=== PATIENT | male | born 1965 | race Caucasian/White ===

== ENCOUNTER 2016-11-13 14:49 | Inpatient (IN) | payer OTHER ==
[~2016-11-13] VITALS: Ht 172.7 cm; Wt 135.2 kg
[2016-11-13 15:10] VITALS: BP 157/90
--- NOTE | 2016-11-13 15:15 | NUR ---
PATIENT TO BED #3 AMBULATED
--- NOTE | 2016-11-13 15:20 | NUR ---
PATIENT PRESENTS TO ED WITH C/O THROAT PAIN, FEELS LIKE THROAT CLOSING UP/SWELLING SINCE LAST NIGHT.FACIAL SWELLING AND BODY ITCH. DENIES SOB. DENIES EATING NEW FOOD.COUGHING WITH PLEGHM . DENIES N/V/D; SKIN IS PINK/WARM/DRY; AAOX4 WITH EVEN AND STEADY GAIT; LUNGS CLEAR BL; HR EVEN AND REGULAR; PT DENIES ANY FEVER, CP, SOB, OR COUGH AT THIS TIME; PATIENT STATES PAIN OF 3/10 AT THIS TIME; VSS; PATIENT POSITIONED FOR COMFORT; HOB ELEVATED; BEDRAILS UP X2; BED DOWN. ER MD MADE AWARE OF PT STATUS.
--- NOTE | 2016-11-13 15:30 | NUR ---
Dr. Buckley evaluating patient at bedside.
--- NOTE | 2016-11-13 15:33 | NUR ---
Note edgar in EDM - 11/13/16 at 1536 by FANY Patient discharged with v/s stable. Written and verbal after care instructions given and explained. Patient alert, oriented and verbalized understanding of instructions. Ambulatory with steady gait. All questions addressed prior to discharge. ID band removed. Patient advised to follow up with PMD. Rx of GARAMYCIN given. Patient educated on indication of medication including possible reaction and side effects. Opportunity to ask questions provided and answered.
--- NOTE | 2016-11-13 15:34 | NUR ---
PT TAKEN OFF THE UNIT VIA WHEEL CHAIR BY RADHA QUINTERO FOR XRAY ON THE NECK
[2016-11-13] MEDS ORDERED: methylPREDNISolone SS 125 MG/2 ML VIAL IVP ONE ×2 (15:35→17:15)
[2016-11-13] MEDS ORDERED: NACL 0.9% 1,000 ML IV ONE (15:35)
[2016-11-13] MEDS ORDERED: diphenhydrAMINE 50 MG/ML VIAL IVP ONE (15:35)
--- NOTE | 2016-11-13 15:44 | NUR ---
Patient back from XRAY via wheelchair per tech.
--- NOTE | 2016-11-13 15:59 | NUR ---
Patient taken to CT via wheelchair per tech.
--- NOTE | 2016-11-13 16:00 | NUR ---
PT TAKEN TO XRAY VIA WHEEL CHAIR BY RADHA SÁNCHEZ
[2016-11-13] MEDS ORDERED: PIPERACILLIN/TAZOBACTAM 3.375 GM in DEXTROSE 5% 50 ML IV ONE (16:05)
[2016-11-13] MEDS ORDERED: ETOMIDATE 20 MG/10 ML VIAL IVP ONE ×3 (16:05→17:15)
--- NOTE | 2016-11-13 16:07 | NUR ---
Patient back from CT via wheelchair per tech.
[2016-11-13 16:11] LABS: BASOPHILS # (AUTO) 0.1 K/uL (0.00-0.22); BASOPHILS % (AUTO) 1.7 % (0.0-2.0); EOSINOPHILS # (AUTO) 0.1 K/uL (0-0.4); EOSINOPHILS % (AUTO) 1.7 % (0.0-4.0); HEMOGLOBIN 14.6 g/dL (12.0-18.0); LYMPHOCYTES # (AUTO) 1.6 K/uL (2.0-11.5); MEAN CORPUSCULAR HEMOGLOBIN 31 pg (27-31); MEAN CORPUSCULAR HGB CONC 33 g/dL (33-37); MEAN CORPUSCULAR VOLUME 92 fL (80-94); MONOCYTES # (AUTO) 0.5 K/uL (0.8-1.0); MONOCYTES % (AUTO) 6.5 % (1.7-9.3); NEUTROPHILS # (AUTO) 5.5 K/uL (1.8-7.7); NEUTROPHILS % (AUTO) 69.1 % (42.2-75.2); PLATELET COUNT (AUTO) 177 K/uL (140-450); RED BLOOD CELL COUNT(AUTO) 4.79 MIL/uL (4.20-6.10); RED CELL DISTRIBUTION WIDTH 13.2 % (11.6-13.7); WHITE BLOOD COUNT (AUTO) 7.8 K/uL (4.8-10.8)
--- NOTE | 2016-11-13 16:14 | NUR ---
Dr. Buckley and RT at bedside for intubation procedure.
--- NOTE | 2016-11-13 16:15 | NUR ---
1615 - 20MG ATOMIDATE GIVEN VIA IV LEFT AC 20G, BP 179/85, HR 72 RR 18, SPO2 99% VIA AMBU BAG 1620 - 100 MG SUCCINYLCHOLINE GIVEN VIA IV LEFT AC 20G BP 179/85, HR 87, RR 20 SPO2 99% VIA AMBU BAG, INTUBATION ATTEMPTED BY DR CR 1623- HR 94, RR 22 SPO2 99% 1624 - 100 MG SUCCINYLECHOLINE GIVEN VIA IV LEFT AC 20G 1625 - BP 219/116, INTUBATION ATTEMPTED BY DR CR VIA GLIDE SCOPE 1628 - REG INTUBATION ATTEMPTED BY DR CR, BP 221/94, HR 102 RR 20 SPO2 99% 1630 - REG INTUBATION ATTEMPTED BY DR CR, BP 194/64, HR 120/ RR 18 SPO2 96 VIA AMBU BAG 1631 - MANUAL VENTILATION CONTINUED BY DIRECTOR OF GUIDANCELeeann WILKS, WITH DIRECTOR OF GUIDANCELeeann QUINTERO ASSISTANCE BP 125/64, HR 102, RR 28, SPO2 99% VIA MANUAL VENTILATION 1635 - 100 MG SUCCINYLCHOLINE, HR 98 1639 - BP 124/94, HR 81, RR 36 MANUALLY VENTILATED CRICHOTOMY PREPARED 164 - BP 213/176, HR 70, RR 36, SPO2 92 VIA AMBU BAG 1642 20MG ATOMIDATE IV GIVEN IV VIA LEFT AC 20G, CRICOTHOMY STARTED BY DR CR
[2016-11-13 16:23] LABS: ANION GAP 14.1 (8-16); CARBON DIOXIDE 25.1 mmol/L (21-32); CREATININE 0.9 mg/dL (0.7-1.3); POTASSIUM 4.2 mmol/L (3.5-5.1)
[2016-11-13 16:30] LABS: ALBUMIN 3.9 g/dL (3.4-5.0); TOTAL BILIRUBIN 0.6 mg/dL (0.0-1.0)
--- NOTE | 2016-11-13 16:34 | NUR ---
XRAY at bedside for STAT xray.
--- NOTE | 2016-11-13 16:43 | NUR ---
1643 - CRICOTHOMY CONTINUED BY DR CR, BP 176/103 HR, 109 RR 29, SPO2 94% 1647 - BP 170/131, HR 115, RR 14, SPO2 99% VIA AMBUA BAG 1650 - DR CR ATTEMPTED TO ADVANCE 6.0 ET TUBE THROUGH THE CRICOTOMY, HR 115, RR 16, SPO2 98% 165- DR CR ATTEMPTED REGULAR INTUBATION 165 - DR GARZON ATTEMPTED REGULAR INTUBATION BP 183/107, HR 124 SPO2 89% VIA AMBU BAG 1658 - 20 MG ATOMIDATE GIVEN VIA IV LEFT AC 20G BP 190/106, HR 113, SPO2 98% VIA AMBU BAG 1702 - GIVEN 1 GM CALCIUM IV LEFT AC 20G, HR 116, SPO2 95% 170 - DR CR ATTEMPTED GLIDE INTUBATION, HR 108, RR 16, SPO2 99% VIA AMBU BAG 1711 - BP OFF DUE TO IV STARTED ON RIGHT ARM, HR 99, RR 22, SPO2 99% VIA BVM 1720 - DR CR DISCONTINUE FURTHER INTUBATION ATTEMPT, ORDERED BIPAP, HR 103, SPO2 97% VIA BVM 1725 - PACKAGE LIFT OPERATOR PLACED PT ON BIPAP PER DR CR'S ORDER
[2016-11-13 16:48] LABS: PROTHROMBIN TIME 9.8 secs (10.8-13.4)
[2016-11-13] MEDS ORDERED: MIDAZOLAM 2 MG/2 ML VIAL ONE (16:48)
--- NOTE | 2016-11-13 17:02 | NUR ---
Team (Dr. Buckley, RT, RN's, techs) still at bedside for intubation procedure.
[2016-11-13] MEDS ORDERED: PIPERACILLIN/TAZOBACTAM 3.375 GM VIAL IV ONE (17:13)
[2016-11-13] MEDS ORDERED: SUCCINYLCHOLINE CHLORIDE 200 MG/10 ML VIAL IVP ONE ×2 (17:15)
[2016-11-13 17:30] LABS: HEMATOCRIT 42.7 % (36-52); HEMOGLOBIN 14.5 g/dL (12.0-18.0); MEAN CORPUSCULAR HEMOGLOBIN 31 pg (27-31); MEAN CORPUSCULAR HGB CONC 34 g/dL (33-37); MEAN CORPUSCULAR VOLUME 92 fL (80-94); PLATELET COUNT (AUTO) 175 K/uL (140-450); RED BLOOD CELL COUNT(AUTO) 4.67 MIL/uL (4.20-6.10); RED CELL DISTRIBUTION WIDTH 13.6 % (11.6-13.7); WHITE BLOOD COUNT (AUTO) 14.7 K/uL (4.8-10.8)
[2016-11-13 17:37] LABS: ANION GAP 15.5 (8-16); CARBON DIOXIDE 22.2 mmol/L (21-32); POTASSIUM 3.7 mmol/L (3.5-5.1)
[2016-11-13 17:43] LABS: ALBUMIN 3.7 g/dL (3.4-5.0); TOTAL BILIRUBIN 0.7 mg/dL (0.0-1.0)
[2016-11-13 17:51] LABS: LYMPHOCYTES % (MANUAL) 16 % (20-46)
--- NOTE | 2016-11-13 17:51 | NUR ---
RESPONDED TO ER TO ASSIST DR. IN DIFFICULT INTUBATION. INTUBATION WAS UNSUCCESSFUL AND PATIENT WAS PLACED ON BIPAP PER DR ORDERS. RT WAS AT BEDSIDE AND ASSISSTED IN BAGGING (AMBU-BAG) PATIENT. PATIENT STABLE AT THIS TIME ON BIPAP.
[2016-11-13 17:52] LABS: EOSINOPHILS % (MANUAL) 1 % (0-4); MONOCYTES % (MANUAL) 5 % (5-12)
[2016-11-13 17:58] VITALS: BP 118/80
[2016-11-13] MEDS ORDERED: hydrALAZINE 20 MG/ML VIAL IVP ONE (18:00)
[2016-11-13] MEDS ORDERED: CALCIUM CHLORIDE 10% 100 MG/ML SYR IVP ONE (18:10)
[2016-11-13] MEDS ORDERED: methylPREDNISolone SS 125 MG/2 ML VIAL ONE (18:44)
[2016-11-13 18:59] VITALS: BP 132/72
--- NOTE | 2016-11-13 19:30 | NUR ---
Care of pt transferred to the care of ICU nurse. Report given to ICU nurse per EVELYN Stephenson. Pt will remain in ER bed until ICU able to absorb pt. See ICU documentation.
[2016-11-13 20:00] VITALS: BP 123/56
--- NOTE | 2016-11-13 20:00 | NUR ---
RECEIVED REPORT FROM ER NURSE. PT IS A/O X4. ABLE TO NOD/SHAKE HEAD TO QUESTIONS. DIFFICULTY SPEAKING NOTED D/T PREVIOUS PROCEDURE. ABLE TO COMMUNICATE SIMPLE NEEDS. NO C/O PAIN OR DISCOMFORT. NO C/O SOB. BILATERAL PERRLA NOTED. SPOKE TO DR. BUENROSTRO REGARDING PT IN ER. AWARE. PT PLACED ON BIPAP. TOLERATING WELL. SATURATING AT 99%. FREQUENT SUCTIONING PROVIDED PER PT REQUEST. SUCTION BLOODY PHLEGM. AWARE. SR ON MONITOR. SKIN IS NON INTACT. NOTED SMALL ROUND SCABS ON LEFT ARM. OPEN AREA IN NECK NOTED D/T ER PROCEDURE. DRESSING IN PLACE. PT ABLE TO MOVE ALL EXTREMITIES. SAFETY PRECAUTION MAINTAINED. BED AT LOWEST SETTINGS. NURSE AT BEDSIDE FOR MONITORING. WILL CONTINUE TO MONITOR.
[2016-11-13] MEDS ORDERED: MORPHINE SULFATE 4 MG/ML SYR IVP PRN (20:45)
[2016-11-13] MEDS ORDERED: ALBUTEROL SULFATE/IPRATROPIU 3 ML SOL IH PRN (20:45)
[2016-11-13] MEDS ORDERED: RACEPINEPHRINE 2.25% 13.5 MG/0.5 ML NEBU INH PRN (20:45)
[2016-11-13] MEDS ORDERED: ONDANSETRON 4 MG/2 ML VIAL IVP PRN (20:45)
[2016-11-13] MEDS ORDERED: HYDROcodone/APAP 5/325 MG 1 TAB TAB PO PRN (20:45)
[2016-11-13] MEDS ORDERED: LORazepam 2 MG/ML VIAL IVP PRN (20:45)
--- NOTE | 2016-11-13 21:00 | NUR ---
PROVIDE FREQUENT SUCTION. CONTINUES TO SUCTION BLOODY PHLEGM. TOLERATED WELL. PT ALERT AND ORIENTED X4. NO C/O PAIN OR DISCOMFORT. NO C/O SOB. ABLE TO ANSWER ALL QUESTIONS. WILL CONTINUE TO MONITOR.
[2016-11-13 21:09] VITALS: BP 140/73
[2016-11-13] MEDS: DEXT 5% /NACL 0.9% 1,000 ML IV SCH (21:20)
--- NOTE | 2016-11-13 22:00 | NUR ---
PROVIDE FREQUENT SUCTION. CONTINUES TO SUCTION BLOODY PHLEGM. TOLERATED WELL. DRESSING CHANGE ON NECK WOUND CHANGE D/T SOILAGE. TOLERATED WELL. PT SLEEPING. AWAKE TO NAME. ALERT AND ORIENTED X4 ONCE AWAKEN. NO C/O PAIN OR DISCOMFORT. NO C/O SOB. WILL CONTINUE TO MONITOR.
[2016-11-13 22:01] VITALS: BP 139/70
--- NOTE | 2016-11-13 23:00 | NUR ---
PROVIDE FREQUENT SUCTION. CONTINUES TO SUCTION BLOODY PHLEGM. TOLERATED WELL. PT SLEEPING. AWAKE TO URINATE. ASSIST TO EDGE OF BED TO USE URINAL. ASSIST WITH URINAL. URINE IS CLEAR, YELLOW.
[2016-11-13] MEDS ORDERED: AMPICILLIN/SULBACTAM 3 GM VIAL ONE ×4 (23:24→23:26)
[2016-11-14] VITALS (11 sets, daily range): BP systolic 132–161; BP diastolic 68–94
--- NOTE | 2016-11-14 | NUR ---
PROVIDE FREQUENT SUCTION. CONTINUES TO SUCTION BLOODY PHLEGM. TOLERATED WELL. PT SLEEPING. AWAKE TO NAME. A/O X4 ONCE AWAKEN. NO C/O PAIN OR DISCOMFORT. NO C/O SOB. WILL CONTINUE TO MONITOR.
[2016-11-14] MEDS: AMPICILLIN/SULBACTAM 3 GM in NACL 0.9% 100 ML IV SCH ×4 (00:02→17:04)
[2016-11-14] MEDS: DEXAMETHASONE 4 MG/ML VIAL IVP SCH ×5 (00:02→23:12)
--- NOTE | 2016-11-14 00:10 | NUR ---
MEDICATION ADMINISTERED ORDERED. IV IS INTACT AND PATENT. TOLERATED WELL. WILL CONTINUE TO MONITOR.
--- NOTE | 2016-11-14 01:00 | NUR ---
PROVIDE FREQUENT SUCTION. CONTINUES TO SUCTION BLOODY PHLEGM. TOLERATED WELL. PT A/O X4. NO C/O PAIN OR DISCOMFORT. NO C/O SOB. WILL CONTINUE TO MONITOR.
[2016-11-14] MEDS: ALBUTEROL SULFATE/IPRATROPIU 3 ML SOL IH SCH ×4 (01:15→18:56)
--- NOTE | 2016-11-14 02:00 | NUR ---
PROVIDE FREQUENT SUCTION. CONTINUES TO SUCTION BLOODY PHLEGM. TOLERATED WELL. PT A/O X4. NO C/O PAIN OR DISCOMFORT. NO C/O SOB. WILL CONTINUE TO MONITOR.
--- NOTE | 2016-11-14 02:45 | NUR ---
Pt transferred to ICU 3 with DINING CAR HOP, COTTON TIER, and RT. Rubén without incident.
--- NOTE | 2016-11-14 03:00 | NUR ---
TRANSPORT PT WITH 3 RNS AND RT VIA GURNEY TO ICU. PT TOLERATED TRANSPORT WELL. SUCTION PROVIDED. CONTINUES TO SUCTION BLOODY PHLEGM. TOLERATED WELL. PT A/O X4. NO C/O PAIN OR DISCOMFORT. NO C/O SOB. WILL CONTINUE TO MONITOR.
--- NOTE | 2016-11-14 04:00 | NUR ---
PROVIDE FREQUENT SUCTION. CONTINUES TO SUCTION BLOODY PHLEGM. TOLERATED WELL. PT SLEEPING. AWAKE TO URINATE. ASSIST TO EDGE OF BED TO USE URINAL. ASSIST WITH URINAL. URINE IS CLEAR, YELLOW. PT NOTED TO HAVE SLIGHT RAISED AREA WITH REDNESS ON RIGHT UPPER CHEST WELL REDNESS ON CHEST, UNDER BILATERAL ARMPIT, AND UPPER BACK. PER PT. REDNESS AND RAISED AREA HAVE BEEN THERE PRIOR TO ADMISSION. NOTIFIED MD. WILL CONTINUE TO MONITOR.
[2016-11-14] MEDS: diphenhydrAMINE 50 MG/ML VIAL IVP PRN ×2 (04:16→15:27)
--- NOTE | 2016-11-14 04:19 | NUR ---
BENADRYL IV PUSH GIVEN PER MD INSTRUCTION. TOLERATED WELL. WILL CONTINUE TO MONITOR FOR S/SX.
--- NOTE | 2016-11-14 05:00 | NUR ---
PROVIDE FREQUENT SUCTION. CONTINUES TO SUCTION BLOODY PHLEGM. TOLERATED WELL. PT A/O X4. NO C/O PAIN OR DISCOMFORT. NO C/O SOB. REDNESS AND RAISED AREA APPEARS TO BE DISSIPATING. WILL CONTINUE TO MONITOR.
[2016-11-14 05:59] LABS: HEMATOCRIT 39.7 % (36-52); HEMOGLOBIN 13.5 g/dL (12.0-18.0); MEAN CORPUSCULAR HEMOGLOBIN 32 pg (27-31); MEAN CORPUSCULAR HGB CONC 34 g/dL (33-37); MEAN CORPUSCULAR VOLUME 92 fL (80-94); PLATELET COUNT (AUTO) 139 K/uL (140-450); RED CELL DISTRIBUTION WIDTH 13.4 % (11.6-13.7); WHITE BLOOD COUNT (AUTO) 12.8 K/uL (4.8-10.8)
--- NOTE | 2016-11-14 06:00 | NUR ---
ENDORSED PT TO EVELYN SUAREZ. PT IS STABLE.
[2016-11-14 06:10] LABS: ANION GAP 17.2 (8-16); CARBON DIOXIDE 20.9 mmol/L (21-32); POTASSIUM 4.1 mmol/L (3.5-5.1)
--- NOTE | 2016-11-14 06:10 | NUR ---
RECEIVED REPORT FROM JOSE RIVASDIRECTOR UTILIZATION MANAGEMENTSTRIP MACHINE TENDER,WHICH SHE STATES THAT PATIENT'S CONDITION IS STABLE ALL NIGHT AND HAS NO SIGN OF RESPIRATORY DISTRESS. PATIENT IS SLEEPING AT THIS TIME BUT EASILY AWAKEN TO VOICE. PATIENT IS ALERT WHILE AWAKE AND ANSWERS THE QUESTIONS WITH CLEAR SPEECH. PATIENT IS ORIENTED X 4 AND STATES THAT HE FEELS LITTLE BETTER TODAY. DENIES PAIN. PATIENT IS ON BIPAP 10/5,RATE 12,FIO2=28%. O2 SAT 97%. LUNG SOUNDS CLEAR. NO SIGH OF DISTRESS. SINUS RHYTHM ON MONITOR. ABDOMEN IS SOFT. NONTENDER. DENIES NAUSEA. PATIENT ABLE TO MOVE ALL EXTREMITIES. SKIN IS WARM AND DRY. NO REDNESS ON THE UPPER CHEST NOTED AT THIS TIME. PATIENT STATES THAT HE HAS LEFT NECK LYMPH NODE SWOLLEN. NO REDNESS ON LEFT NECK NOTED,BUT LEFT NECK IS LITTLE BIGGER THAN THE RIGHT NECK. PATIENT COUGHS UP WITH SMALL PALE BROWN THICK MUCUS. ORAL SUCTIONED. PATIENT HAS IV OF D5/0.9 NS @ 100 ML/HR. REPOSITIONED TO LT SIDE. CONTINUE TO MONITOR THE PATIENT.
[2016-11-14 06:14] LABS: MAGNESIUM 1.7 mg/dL (1.8-2.4); PHOSPHORUS 2.8 mg/dL (2.5-4.9)
--- NOTE | 2016-11-14 06:32 | NUR ---
REC'D PT ON REYNA BIPAP SETTINGS / RR 12 FIO2 28% ALARMS ON AND FUNCTIONING PROPERLY AMBU BAG AT SIDE OF BIPAP AND BIPAP IS PLUGGED INTO RED OUTLET, I\L TX GIVEN WITH DUONEB 3ML WITH NO ADVERSE REACTION POST TX, B\S ARE CLEAR, WEARING LARGE FACE MASK AND SKIN INTEGRITY IS INTACT
[2016-11-14] MEDS: DEXT 5% /NACL 0.9% 1,000 ML IV SCH ×2 (06:45→10:22)
--- NOTE | 2016-11-14 07:00 | NUR ---
PATIENT 'S CONDITION IS UNCHANGED. REPORT GIVEN TO ADAMA RIVAS FOR CONTINUITY OF CARE.
[2016-11-14 07:04] LABS: LYMPHOCYTES % (MANUAL) 15 % (20-46); MONOCYTES % (MANUAL) 3 % (5-12)
--- NOTE | 2016-11-14 07:05 | NUR ---
PT OFF BIPAP PLACED ON 28% COOL MIST EVELYN GALAN AND EVELYN SUAREZ NOTIFIED OF CHANGES MADE
--- NOTE | 2016-11-14 07:15 | NUR ---
RECEIVED REPORT FROM EVELYN SUAREZ. NO SIGNS OF ACUTE DISTRESS AT THIS TIME. NO C/O PAIN. PT IS ON COOL MIST AEROSIL, FIO2: 28%. IV TO LEFT AC #20 AND RIGHT HAND #20 PATENT AND INTACT. OLD SCABS NOTED TO UPPER BACK, STITCH X1 TO THROAT NOTED, REDNESS TO ABDOMEN. PT IS CURRENTLY SR ON THE MONITOR. SAFETY PRECAUTIONS IN PLACE WITH BED IN LOWEST POSITION AND SIDE RAILS UP. CALL LIGHT WITHIN REACH. WILL CONTINUE TO MONITOR.
--- NOTE | 2016-11-14 08:45 | NUR ---
PRESENT AT BEDSIDE ,EXAMINED THE PATIENT AND CHECKED ON THE PATIENT'S NECK. PER : KEEP PATIENT NPO UNTIL SWALLOW EVALUATION DONE.
--- NOTE | 2016-11-14 08:47 | NUR ---
DR. HILL IN TO SEE PT. MD AWARE OF LOW MAGNESIUM: 1.7. WILL FOLLOW UP ON ORDERS.
--- NOTE | 2016-11-14 08:55 | NUR ---
PER DR. HILL PLACE PT ON 3LNC RN ADAMA NOTIFIED
--- NOTE | 2016-11-14 08:59 | NUR ---
PATIENT HAS BEEN SCREENED AND CATEGORIZED HIGH NUTRITION RISK. PATIENT WILL BE SEEN WITHIN 1-2 DAYS OF ADMISSION. 11/14/16-11/15/[address]
[2016-11-14] MEDS ORDERED: MAG SULF 2000 MG/WATER PREMIX 50 ML IV SCH (09:30)
--- NOTE | 2016-11-14 10:30 | NUR ---
PT TOLERATED MEDS WELL
--- NOTE | 2016-11-14 10:42 | NUR ---
CALLED IN TO UPDATE IN PATIENT'S CONDITION , MADE AWARE OF PT HAS HIGH BP WITH SBP BETWEEN 145-154 IN THE PAST 4 HRS. PER : NO MEDICATION FOR HIGH BP AT THIS TIME. ORDER RECEIVED FOR TRANSFERRING PATIENT TO TELEMETRY.
--- NOTE | 2016-11-14 11:49 | NUR ---
DR. CORADO IN TO SEE PT. WILL FOLLOW UP ON ORDERS.
--- NOTE | 2016-11-14 12:06 | NUR ---
LAB CALLED IN FOR CRITICAL LAB : POSITIVE BLOOD CULTURE WITH GRAM POSITIVE COCCI IN CLUSTER. PAGED AND WAITING FOR MD TO CALL BACK.
--- NOTE | 2016-11-14 12:12 | NUR ---
PT TOLERATED MEDS WELL.
--- NOTE | 2016-11-14 12:14 | NUR ---
CALLED BACK AND WAS NOTIFIED OF PATIENT HAS POSITIVE BLOOD CULTURE GRAM POSITIVE COCCI IN CLUSTER. ORDERS TO GIVE VANCOMYCIN AND INF DISEASE CONSULT. ORDER IS CARRIED OUT. NURSE ADAMA WAS INFORMED.
[2016-11-14] MEDS ORDERED: VANCOMYCIN PER PHARMACY MC PRN (12:20)
[2016-11-14] MEDS ORDERED: VANCOMYCIN 1GM/DEXT 5% PREMIX 200 ML IV ONE (12:20)
[2016-11-14] MEDS: VANCOMYCIN HCL 1,500 MG in DEXTROSE 5% 250 ML IV SCH ×2 (13:45→20:53)
--- NOTE | 2016-11-14 13:46 | NUR ---
PT TOLERATED MEDS WELL. PT C/O ITCHINESS TO ABDOMINAL RASH. OFFERED BENADRYL, BUT PT REFUSED. WILL CONTINUE TO MONITOR.
--- NOTE | 2016-11-14 14:10 | NUR ---
URINE SPECIMEN COLLECTED AND SENT TO LAB. SPEECH THERAPIST PRESENT AT BEDSIDE.
--- NOTE | 2016-11-14 14:12 | NUR ---
PER SPEECH THERAPIST, "PT DECLINED SWALLOW EVAL AT THIS TIME HE IS HAVING DIFFICULTY SWALLOWING HIS OWN SALIVA." SPEECH THERAPIST STATED SHE WILL COME BACK TO ATTEMPT AN EVALUATION AT A LATER TIME.
--- NOTE | 2016-11-14 14:14 | NUR ---
VETERANS SERVICE OFFICER note (attempted bedside swallow evaluation) [phone]. VETERANS SERVICE OFFICER came to attempt bedside swallow evaluation; however, pt reported that he doesn't feel ready to attempt PO at this time as he is still not able to swallow his own saliva at this time. VETERANS SERVICE OFFICER provided pt with education regarding purpose of VETERANS SERVICE OFFICER's visit, supportive listening, and encouragement. Pt appreciative of VETERANS SERVICE OFFICER's visit, but unwilling to participate at this time. VETERANS SERVICE OFFICER will reattempt as pt willing/able to participate safely, as appropriate. PVE for d/w RNs (Zen) prior to and following bedside swallow evaluation attempt. Addendum: 11/14/16 at 1706 by Corazon REYNOLDS Based on pt's status of not being able to swallow his own saliva due to pt's throat swelling, VETERANS SERVICE OFFICER will await pt's throat swelling to resolve prior to reattempting bedside swallow evaluation. VETERANS SERVICE OFFICER will monitor pt's airway status (need for suctioning, ability to swallow his own saliva, resolution of throat swelling, etc.) and will reattempt bedside swallow evaluation thereafter as pt able to participate safely - which, depending on how quickly pt's throat swelling resolves, may take up to several days for pt to be ready to participate safely with bedside swallow evaluation.
--- NOTE | 2016-11-14 15:06 | NUR ---
11/14/16 RD INITIAL ASSESSMENT COMPLETED PLEASE REFER TO NUTRITION ASSESSMENT UNDER CARE ACTIVITY FOR ESTIMATED NUTRITIONAL NEEDS. 1. WHEN MEDICALLY FEASIBLE, CONSIDER INITIATING CLEAR LIQUID DIET AND ADVANCE TOLERATED TO 2GM SODIUM DIET WITH APPROPRIATE TEXTURE PER ST RECOMMENDATION 2. PROVIDE NUTRITION EDUCATION THERAPY NEEDED 3. RD TO FOLLOW UP WITHIN 2-3 DAYS; HIGH RISK VICKIE LABOY RD
--- NOTE | 2016-11-14 15:32 | NUR ---
PT C/O ITCHINESS, ADMINISTERED BENADRYL ORDERED PRN. PT TOLERATED WELL. WILL CONTINUE TO MONITOR.
--- NOTE | 2016-11-14 15:36 | NUR ---
PT'S FATHER, MODE, PRESENT AT BEDSIDE.
[2016-11-14 16:06] LABS: BARBITURATE, URINE NEG. ng/ml (NEG <=200); BENZODIAZEPINE, URINE NEG. ng/mL (NEG <=200); CANNABINOID, URINE NEG. ng/mL (NEG <=50); COCAINE, URINE NEG. ng/mL (NEG <=300); OPIATE, URINE NEG. ng/mL (NEG <=2000); PHENCYCLIDINE SCREEN,URINE NEG. ng/mL (NEG <=25)
--- NOTE | 2016-11-14 17:11 | NUR ---
PT TOLERATED MEDS WELL.
--- NOTE | 2016-11-14 17:46 | NUR ---
CHECKED ON PT. ALL NEEDS MET AT THIS TIME. CALL LIGHT WITHIN REACH.
[2016-11-14] MEDS ORDERED: MOME0.051 TOP (18:28)
--- NOTE | 2016-11-14 18:35 | NUR ---
REPORT GIVEN TO EVELYN GRANGER. ALL QUESTIONS ANSWERED. PT WILL BE TRANSFERRED TO TELEMETRY ROOM 106A.
--- NOTE | 2016-11-14 18:35 | NUR ---
RECEIVED REPORT FROM ADAMA DIRECTOR LEARNING AND DEVELOPMENT. WILL GET ROOM READY AND AWAIT PT'S ARRIVAL.
--- NOTE | 2016-11-14 18:39 | NUR ---
INFORMED THERE ARE NO AVAILABLE NURSES AT THIS TIME. PT WILL BE CONTINUE TO BE TELEMETRY HOLDING FOR THE TIME BEING.
--- NOTE | 2016-11-14 19:18 | NUR ---
ENDORSED CARE TO EVELYN HOUGH. PT IN STABLE CONDITION.
--- NOTE | 2016-11-14 19:22 | NUR ---
RECEIVED REPORT FROM EVELYN GALAN. INITIAL ASSESSMENT COMPLETED. PT IS AWAKE, ALERT, ORIENTED X4. O2 VIA NASAL CANNULA AT 2LPM. ATTACHED TO TEST ENGINEER NUCLEAR EQUIPMENT, PULSE OXIMETER. IV ACCESS AT RIGHT AC 20G, SALINE LOCK, LEFT AC 20G PATENT, INTACT, IVF INFUSING WELL. INCISION AT ANTERIOR NECK NOTED, DRESSING DRY AND INTACT AT THIS TIME. NOTED TO HAVE MULTIPLE SCABS AT THE UPPER BACK, RASHES AT LEFT ABDOMEN. ABLE TO VOID FREELY. SCDS IN PLACE, BED IN LOW POSITION, SAFETY MEASURE ENSURE. WILL CONTINUE TO MONITOR.
--- NOTE | 2016-11-14 21:03 | NUR ---
DR. LOPEZ AT BEDSIDE EVALUATING PATIENT. UPDATED OF PATIENT'S CONDITION.
[2016-11-14] MEDS ORDERED: cefTRIAXone 1,000 MG VIAL ONE (21:40)
--- NOTE | 2016-11-14 23:29 | NUR ---
PT ASLEEP AT THIS TIME. NO SIGNS OF DISTRESS. WILL CONTINUE TO MONITOR.
[2016-11-15] VITALS: BP 115/41
[2016-11-15] MEDS: ALBUTEROL SULFATE/IPRATROPIU 3 ML SOL IH SCH ×4 (01:01→19:23)
--- NOTE | 2016-11-15 01:15 | NUR ---
PT ASLEEP AT THIS TIME. NO SOB NOTED.
[2016-11-15] MEDS: DEXT 5% /NACL 0.9% 1,000 ML IV SCH ×3 (03:37→17:47)
--- NOTE | 2016-11-15 03:45 | NUR ---
PT RESTING COMFORTABLY, NO SIGNS OF DISTRESS NOTED. WILL CONTINUE TO MONITOR.
[2016-11-15 04:00] VITALS: BP 110/59
[2016-11-15 05:01] LABS: HEMATOCRIT 39.9 % (36-52); HEMOGLOBIN 13.6 g/dL (12.0-18.0); MEAN CORPUSCULAR HEMOGLOBIN 31 pg (27-31); MEAN CORPUSCULAR HGB CONC 34 g/dL (33-37); MEAN CORPUSCULAR VOLUME 93 fL (80-94); PLATELET COUNT (AUTO) 161 K/uL (140-450); RED BLOOD CELL COUNT(AUTO) 4.31 MIL/uL (4.20-6.10); RED CELL DISTRIBUTION WIDTH 13.9 % (11.6-13.7); WHITE BLOOD COUNT (AUTO) 22.9 K/uL (4.8-10.8)
[2016-11-15] MEDS: DEXAMETHASONE 4 MG/ML VIAL IVP SCH ×4 (05:01→23:49)
[2016-11-15] MEDS: VANCOMYCIN HCL 1,500 MG in DEXTROSE 5% 250 ML IV SCH (05:01)
--- NOTE | 2016-11-15 05:10 | NUR ---
MORNING CARE DONE, PT TOLERATED WELL.
--- NOTE | 2016-11-15 05:45 | NUR ---
PT TRANSFERRED TO FLOOR TO TELE UNIT RM 124-B. NO SIGNS OF DISTRESS, SHEREEN CONTINUE TO MONITOR.
[2016-11-15 06:14] LABS: ALBUMIN 3.7 g/dL (3.4-5.0); CARBON DIOXIDE 22.1 mmol/L (21-32); CREATININE 1.1 mg/dL (0.7-1.3); MAGNESIUM 2.3 mg/dL (1.8-2.4); PHOSPHORUS 3.6 mg/dL (2.5-4.9); POTASSIUM 4.1 mmol/L (3.5-5.1); TOTAL BILIRUBIN 0.5 mg/dL (0.0-1.0)
[2016-11-15 06:23] LABS: LYMPHOCYTES % (MANUAL) 5 % (20-46); MONOCYTES % (MANUAL) 2 % (5-12)
--- NOTE | 2016-11-15 07:28 | NUR ---
REPORT GIVEN TO AM SHIFT NURSE FOR CONTINUITY OF CARE. PT ON STABLE CONDITION AT THIS TIME.
--- NOTE | 2016-11-15 07:29 | NUR ---
RECEIVED REPORT FROM NIGHT NURSE, PT IS AAOX4, PT ON 2L O2 VIA NC, IV TO R HAND 20 G SALINE LOCK, DRY AND PATENT, SCDS IN PLACE BILATERALLY. 3 SCABS TO UPPER BACK, S/P INCISION 1 STITCH ON NECK, L ABDOMINAL RASH. INITIAL ASSESSMENT DONE, PLAN OF CARE DISCUSSED WITH PT, PT VERBALIZED UNDERSTANDING. ALL SAFETY PRECAUTIONS MET, CALL LIGHT WITHIN REACH, WILL CONTINUE TO MONITOR.
[2016-11-15 08:00] VITALS: BP 133/63
--- NOTE | 2016-11-15 08:30 | NUR ---
PT CURRENTLY RESTING COMFORTABLY IN BED, NO S/S OF DISTRESS NOTED. ALL SAFETY PRECAUTIONS IN PLACE, CALL LIGHT WITHIN REACH, WILL CONTINUE TO MONITOR.
[2016-11-15 12:00] VITALS: BP 134/77
[2016-11-15] MEDS ORDERED: HYDROmorphone PFS 2 MG/ML SYR ONE (12:01)
--- NOTE | 2016-11-15 13:00 | NUR ---
DILAUDID NOT GIVEN, PACCU ENTERED WRONG PT.
--- NOTE | 2016-11-15 13:32 | NUR ---
CM NOTE FAXED INITIAL REVIEW TO [facility] [phone] JUDITH [phone]
[2016-11-15] MEDS: diphenhydrAMINE 50 MG/ML VIAL IVP PRN (15:04)
--- NOTE | 2016-11-15 15:15 | NUR ---
CHECKED IN ON PT, PT STATED HE WAS FEELING ITCHY, GAVE BENADRYL PRN PER MD ORDERS. PT TOLERATED WELL. ALL SAFETY PRECAUTIONS IN PLACE, CALL LIGHT WITHIN REACH, WILL CONTINUE TO MONITOR.
[2016-11-15 16:00] VITALS: BP 140/60
--- NOTE | 2016-11-15 16:00 | NUR ---
CHECKED IN ON PT, PT CURRENTLY RESTING IN BED COMFORTABLY NO S/S OF DISTRESS NOTED, ALL SAFETY PRECAUTIONS MET CALL LIGHT WITHIN REACH, WILL CONTINUE TO MONITOR.
--- NOTE | 2016-11-15 17:33 | NUR ---
DUE MEDICATION GIVEN. PT TOLERATED WELL, ALL SAFETY PRECAUTIONS MET, CALL LIGHT WITHIN REACH, WILL CONTINUE TO MONITOR.
[2016-11-15] MEDS ORDERED: VANCOMYCIN 1,250 MG in DEXTROSE 5% 250 ML IV SCH (18:00)
--- NOTE | 2016-11-15 18:54 | NUR ---
RT IN TO SEE PT, PT IS SITTING COMFORTABLY IN BED WATCHING TV, IV IS PATENT AND INTACT, INFUSING WELL. PT IS AAOX4 WITH CLEAR SPEECH. ALL SAFETY PRECAUTIONS MET, CALL LIGHT WITHIN REACH, WILL CONTINUE TO MONITOR. Addendum: 11/15/16 at 1902 by Fabiana Hooper RN SPEECH PATHOLOGIST IN TO SEE PT, NOT RT. SWALLOW EVALUATION DONE BY SPEECH PATHOLOGIST.
--- NOTE | 2016-11-15 19:12 | NUR ---
ENDORSED PLAN OF CARE TO NIGHT NURSES AINSLEY AND SHIVANI FOR CONTINUITY OF CARE. PT IN STABLE CONDITION, NO SIGNS OF DISTRESS NOTED. ALL SAFETY PRECAUTIONS MET, CALL LIGHT WITHIN REACH.
--- NOTE | 2016-11-15 19:30 | NUR ---
RECEIVED REPORT AT BEDSIDE FROM DAY NURSE. PT IS ALERT AND ORIENTED X4. PT HAS ANTERIOR NECK INCISION, 3 SCABS ON UPPER BACK, AND LEFT ABDOMEN RASH. IV ON RIGHT HAND 20G RUNNING D5NS AT 100ML/HR, INTACT. PT IS IN STABLE CONDITION, THERE ARE NO SIGNS OF DISTRESS. PT IS ON OXYGEN AT 2.0L VIA NC. BED IN LOW POSITION, CALL LIGHT WITHIN REACH. WILL CONTINUE TO MONITOR.
[2016-11-15 20:00] VITALS: BP 134/57
--- NOTE | 2016-11-15 20:02 | NUR ---
BALL RACKER NOTE 18:30-19:00 Bedside swallow evaluation completed. Please refer to BALL RACKER evaluation for H+P. BALL RACKER consulted to re-assess swallow, pt in too much pain and presented w/too much swelling to complete swallow evaluation. Pt seen at bedside, awake and alert. Cooperative w/all tasks, able to follow 1-step directions, able to voice wants and needs. O: Pt seen for swallow evaluation. Pt presently NPO. Pain: Mild discomfort-throat. OME: WFL muscle ROM/Tone. DENTITION: Carries teeth, missing some. CONSISTENCIES EVALUATED: Thin, puree, solid textures. ORAL PHASE: Good bolus acceptance/containment. WFL labial seal w/spoon and straw. WFL bolus mastication + a-p transit of all textures. No oral residues remained s/p swallow. PHARYNGEAL PHASE: Cough x1 noted on first sip of thin liquids, no vocal change noted. No further s/sx of aspiration noted on any tested consistency. Pt independently alternated bites/sips. NOTE: Bedside swallow evaluation does not r/o silent aspiration A: WFL oral phase, min pharyngeal phase impairment 2/2 pain during swallow 2/2 swelling. No overt s/sx of aspiration noted w/any tested consistency. P: Recommend regular texture w/thin liquids for all PO intake + safe swallow strategies: 1: Upright at 90 during and 20 min after PO, 2. Small bites/sips, 3. Slow rate, 4. Alternate bites/sips, 5. Double swallow 6. D/c if pulmonary distress noted, consult NSG/ST/RT. Nursing to continue to follow, ST f/u not indicated. Swallow precautions posted at [facility] PVE w/RN Michaela and pt re: recommendations and safe swallow precautions. G8996: CI (1-19%) G8997: CI (1-19%) G8998: CI (1-19%) Swallow NOMS 6
--- NOTE | 2016-11-15 20:44 | NUR ---
SET UP ROCEPHIN IVPB PER MD ORDERS. PATIENT IS COMFORTABLE, STABLE, WITHOUT SIGNS OF DISTRESS. VITAL SIGNS WNL. BED IS IN LOW POSITION, CALL LIGHT WITHIN REACH. WILL CONTINUE TO MONITOR.
--- NOTE | 2016-11-15 23:50 | NUR ---
GAVE PT SCHEDULED MEDICATION. PT TOLERATED WELL. PT VITAL SIGNS WNL. PT IS STABLE, COMFORTABLE, WITHOUT SIGNS OF DISTRESS. BED IN LOW POSITION, CALL LIGHT WITHIN REACH. WILL CONTINUE TO MONITOR.
[2016-11-16] VITALS: BP 133/58
[2016-11-16] MEDS: ALBUTEROL SULFATE/IPRATROPIU 3 ML SOL IH SCH ×4 (00:42→19:16)
--- NOTE | 2016-11-16 02:27 | NUR ---
PT IS RESTING. PT IS STABLE AND WITHOUT ANY SIGNS OF DISTRESS. BED IN LOW POSITION, CALL LIGHT WITHIN REACH. WILL CONTINUE TO MONITOR.
[2016-11-16 04:00] VITALS: BP 111/47
--- NOTE | 2016-11-16 04:30 | NUR ---
PT RESTING IN BED. PT IS STABLE, VITAL SIGNS WNL, ON 2.0L OF O2 VIA NC. PT FREE OF DISTRESS. BED IN LOW POSITION, CALL LIGHT WITHIN REACH. WILL CONTINUE TO MONITOR.
[2016-11-16 06:10] LABS: HEMATOCRIT 35.5 % (36-52); HEMOGLOBIN 11.9 g/dL (12.0-18.0); MEAN CORPUSCULAR HEMOGLOBIN 31 pg (27-31); MEAN CORPUSCULAR HGB CONC 34 g/dL (33-37); MEAN CORPUSCULAR VOLUME 93 fL (80-94); PLATELET COUNT (AUTO) 128 K/uL (140-450); RED CELL DISTRIBUTION WIDTH 13.7 % (11.6-13.7); WHITE BLOOD COUNT (AUTO) 14.4 K/uL (4.8-10.8)
--- NOTE | 2016-11-16 06:12 | NUR ---
PER PATIENTS ST EVALUATION, RECOMMENDED FOR REGULAR TEXTURE WITH THIN LIQUIDS FOR ALL PO INTAKE, PAGED DR HILL TO ASK IF PATIENT TO BE KEPT NPO OR IF PATIENT CAN GET SOME BREAKFAST. DR KELLER RAILWAY TRACK PLANT OPERATOR. PER DR KELLER, PRIMARY DOCTOR NEEDS TO BE PAGED SHE IS NOT FAMILIAR WITH THE PATIENT AND TO KEEP PATIENT NPO.
[2016-11-16 06:24] LABS: ANION GAP 13.5 (8-16); CARBON DIOXIDE 22.9 mmol/L (21-32); CREATININE 0.8 mg/dL (0.7-1.3); POTASSIUM 4.4 mmol/L (3.5-5.1)
[2016-11-16 06:37] LABS: MAGNESIUM 2.1 mg/dL (1.8-2.4); PHOSPHORUS 2.9 mg/dL (2.5-4.9)
[2016-11-16] MEDS: DEXAMETHASONE 4 MG/ML VIAL IVP SCH ×3 (06:37→17:25)
--- NOTE | 2016-11-16 07:30 | NUR ---
ENDORSED PT TO DAY SHIFT NURSE. PT STABLE, NO SIGNS OF DISTRESS. BED IN LOW POSITION, CALL LIGHT WITHIN REACH. WILL CONTINUE TO MONITOR.
--- NOTE | 2016-11-16 07:31 | NUR ---
RECEIVED PATIENT REPORT AT BEDSIDE FROM EVENING NURSE. PATIENT IS AWAKE, ALERT AND ORIENTED. NO SIGNS AND SYMPTOMS OF DISTRESS NOTED. NO COMPLAINTS OF PAIN AT THIS TIME. PATIENT ON O2 2L VIA NC. IV SITE NOTED ON LEFT HAND. IVF INFUSING WELL. BED IN LOWEST POSITION, SIDE RAIL UP AND CALL LIGHT WITHIN REACH. WILL CONTINUE TO MONITOR.
[2016-11-16 07:56] LABS: LYMPHOCYTES % (MANUAL) 7 % (20-46); MONOCYTES % (MANUAL) 1 % (5-12)
[2016-11-16 08:00] VITALS: BP 139/74
[2016-11-16] MEDS: DEXT 5% /NACL 0.9% 1,000 ML IV SCH ×2 (08:45→18:45)
[2016-11-16] MEDS ORDERED: ROC2I IV (10:14)
[2016-11-16] MEDS ORDERED: ACET-9525 PO (10:14)
--- NOTE | 2016-11-16 10:17 | NUR ---
CM NOTE FAXED CONCURRENT REVIEW TO [facility] [phone] PH JUDITH [phone]
--- NOTE | 2016-11-16 11:00 | NUR ---
SPOKE WITH DR CORADO AND INFORMED HIM ABOUT THE SPEECH THERAPIST'S RECOMMENDATION. PER DR TORRES TO ORDER DIET PER ST'S RECOMMENDATIONS
[2016-11-16 12:00] VITALS: BP 145/69
--- NOTE | 2016-11-16 14:53 | NUR ---
11/16/16 RD FOLLOW-UP ASSESSMENT COMPLETED 1. CONTINUE REGULAR DIET 2. RD TO FOLLOW UP 3-5 DAYS; MODERATE RISK VICKIE LABOY RD
[2016-11-16 16:00] VITALS: BP 145/69
--- NOTE | 2016-11-16 19:30 | NUR ---
PATIENT REPORT GIVEN TO NIGHT NURSE AT BEDSIDE. PATIENT IS IN STABLE CONDITION. PATIENT GETTING BREATHING TREATMENT AT THE MOMENT.
--- NOTE | 2016-11-16 19:31 | NUR ---
RECEIVED REPORT FROM DAY RN AT BEDSIDE FOR CONTINUITY OF CARE. PATIENT IS ALERT AND ORIENTED X4, DISCUSSED PLAN OF CARE WITH PATIENT, VERBALIZED UNDERSTANDING. SHIFT ASSESSMENT COMPLETED, VITAL SIGNS STABLE AT THIS TIME. NO RESPIRATORY DISTRESS NOTED ON ROOM AIR, O2 SAT AT 99%. PATIENT DENIES PAIN. IV TO HAND PATENT AND INFUSING FLUIDS WELL. PATIENT HAS SMALL INCISION TO ANTERIOR NECK, AND RASH TO LEFT ABDOMEN. SAFETY PRECAUTIONS ENFORCED, CALL LIGHT PLACED WITHIN REACH. WILL CONTINUE TO MONITOR.
[2016-11-16 20:00] VITALS: BP 118/52
--- NOTE | 2016-11-16 20:06 | NUR ---
DUE MEDICATIONS ADMINISTERED, TOLERATED WELL AND VERBALIZED UNDERSTANDING OF USE. PATIENT RESTING IN BED WATCHING TV, NO DISTRESS OR DISCOMFORT NOTED. CALL LIGHT WITHIN REACH, WILL CONTINUE TO MONITOR FREQUENTLY.
--- NOTE | 2016-11-16 22:05 | NUR ---
PATIENT RESTING IN BED WATCHING TV, ALL NEEDS MET AT THIS TIME. CALL LIGHT WITHIN REACH, WILL CONTINUE TO MONITOR.
[2016-11-17] VITALS: BP 134/68
[2016-11-17] MEDS: DEXAMETHASONE 4 MG/ML VIAL IVP SCH ×4 (00:31→18:14)
--- NOTE | 2016-11-17 00:31 | NUR ---
DUE MEDICATIONS ADMINISTERED, VITAL SIGNS STABLE, SAFETY MEASURES ENFORCED. CALL LIGHT WITHIN REACH.
[2016-11-17] MEDS: ALBUTEROL SULFATE/IPRATROPIU 3 ML SOL IH SCH ×4 (00:33→19:05)
--- NOTE | 2016-11-17 00:33 | NUR ---
HHN TX NOT GIVEN. PER PATIENT TO NOT WAKE HIM UP IF HE IS ASLEEP. PT IS ASLEEP. WILL CONTINUE TO MONITOR.
--- NOTE | 2016-11-17 02:10 | NUR ---
PATIENT RESTING IN BED, NO DISTRESS OR DISCOMFORT NOTED, CALL LIGHT WITHIN REACH. WILL CONTINUE TO MONITOR.
[2016-11-17 04:00] VITALS: BP 150/83
--- NOTE | 2016-11-17 04:10 | NUR ---
VITAL SIGNS STABLE, PATIENT EATING A SNACK, TOLERATED WELL, DENIES ANY TIGHTNESS TO THROAT, CALL LIGHT WITHIN REACH. WILL CONTINUE TO MONITOR.
[2016-11-17] MEDS: DEXT 5% /NACL 0.9% 1,000 ML IV SCH ×2 (04:45→14:45)
--- NOTE | 2016-11-17 06:05 | NUR ---
PATIENT AWAKE SITTING UP IN BED, NO DISTRESS OR DISCOMFORT NOTED. CALL LIGHT WITHIN REACH.
[2016-11-17 07:14] LABS: BASOPHILS # (AUTO) 0.1 K/uL (0.00-0.22); BASOPHILS % (AUTO) 1.2 % (0.0-2.0); EOSINOPHILS # (AUTO) 0.2 K/uL (0-0.4); EOSINOPHILS % (AUTO) 1.7 % (0.0-4.0); HEMATOCRIT 35.1 % (36-52); HEMOGLOBIN 11.9 g/dL (12.0-18.0); LYMPHOCYTES # (AUTO) 1.4 K/uL (2.0-11.5); LYMPHOCYTES % (AUTO) 12.3 % (20.5-51.1); MEAN CORPUSCULAR HEMOGLOBIN 31 pg (27-31); MEAN CORPUSCULAR HGB CONC 34 g/dL (33-37); MEAN CORPUSCULAR VOLUME 92 fL (80-94); MONOCYTES # (AUTO) 0.4 K/uL (0.8-1.0); MONOCYTES % (AUTO) 3.1 % (1.7-9.3); NEUTROPHILS # (AUTO) 9.4 K/uL (1.8-7.7); NEUTROPHILS % (AUTO) 81.7 % (42.2-75.2); PLATELET COUNT (AUTO) 112 K/uL (140-450); RED BLOOD CELL COUNT(AUTO) 3.84 MIL/uL (4.20-6.10)
--- NOTE | 2016-11-17 07:25 | NUR ---
ENDORSED PATIENT TO DAY RN FOR CONTINUITY OF CARE, PATIENT IS IN STABLE CONDITION.
--- NOTE | 2016-11-17 07:26 | NUR ---
RECEIVED REPORT FROM BOOTH CASHIER NURSE AT BEDSIDE FOR CONTINUITY OF CARE. PT IS AWAKE AND ORIENTED. R/T IS WITH PT ADMINISTERING BREATHING TREATMENTS. INTRODUCED SELF AND UPDATED BOARD. VS ARE WNL. IV IS ON RIGHT HAND 20G D5NS AT 10ML/HR. SURGICAL INCISION ON TRACHEA WITH ONE SUTURE. 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 RASH AND SCAB ON BACK NOTED. Addendum: 11/17/16 at 0930 by Leia Torres RN NO RASH ON BACK. FOUR SCABS ON UPPER BACK FROM PRIOR BIOPSY AT PROC TECH.
[2016-11-17 07:55] LABS: WHITE BLOOD COUNT (AUTO) 11.5 K/uL (4.8-10.8)
[2016-11-17 08:00] VITALS: BP 130/77
[2016-11-17 08:03] LABS: MAGNESIUM 2.1 mg/dL (1.8-2.4); PHOSPHORUS 3.2 mg/dL (2.5-4.9)
[2016-11-17 08:16] LABS: CREATININE 0.8 mg/dL (0.7-1.3)
--- NOTE | 2016-11-17 09:30 | NUR ---
PT RESTING COMFORTABLY, WATCHING TV. NO COMPLAINTS AT THIS TIME. WILL CONTINUE TO MONITOR PT.
--- NOTE | 2016-11-17 11:11 | NUR ---
AYLA NOTE FAXED CONCURRENT REVIEW AND ORDER FOR IV ANTIBIOTIC FOR HOME TO [facility] [phone] JUDITH [phone] FAXED ORDER FOR HOME HEALTH FOR IV ANTIBIOTIC TO [facility] [phone] ROSA # [phone] Addendum: 11/17/16 at 1356 by Sharon Marquez CM [facility] LOVE PH# [phone]
[2016-11-17 11:12] LABS: PROTHROMBIN TIME 10.9 secs (10.8-13.4)
--- NOTE | 2016-11-17 11:25 | NUR ---
RECEIVED ORDERS FOR D/C TODAY AND PICC LINE INSERTION. [facility]IRE CALLED WANTING TO CONFIRM ADDRESS FOR DELIVERY OF ANTIBIOTICS. SPOKE W/ PT.
[2016-11-17 12:00] VITALS: BP 148/69
--- NOTE | 2016-11-17 12:35 | NUR ---
ADMINISTERED DECADRON. PT TOLERATED WELL. PT IS EATING LUNCH IN ROOM. NO COMPLAINTS AT THIS TIME. WILL CONTINUE TO MONITOR.
--- NOTE | 2016-11-17 15:20 | NUR ---
AYLA NOTE NO ACCEPTING HOME HEALTH AT THIS TIME. [facility] AYLA LOVE PH [phone] AWARE. PER AYLA LOVE, SHE CAN ONLY GIVE AUTHORIZATION WHEN THERE IS ALREADY AN ACCEPTING HOME HEALTH. RONIT SCHMITZ AWARE.
--- NOTE | 2016-11-17 15:35 | NUR ---
SS NOTE: PER HELDER FROM [facility] ([phone]), THEY ARE ABLE TO ACCEPT PT AND WILL JUST NEED AUTH FROM PT'S INSURANCE. I SPOKE WITH AYLA LOVE FROM [email or web address] ([phone]). SHE STATED THAT SHE WILL WORK ON THE AUTH AND CALL BACK WITH THE AUTH NUMBER. PER NIDIA FROM [facility] ([phone]), THEY WILL DELIVER PT'S MEDICATIONS TONIGHT.
--- NOTE | 2016-11-17 15:45 | NUR ---
PT RESTING COMFORTABLY IN BED WATCHING TV. PT HAS NO COMPLAINTS AT THIS TIME. WILL CONTINUE TO MONITOR PT.
--- NOTE | 2016-11-17 15:58 | NUR ---
SS NOTE: PER TONI ST ([phone]), AUTH #[id number] FOR [facility] ([phone]). I SPOKE WITH HELDER FROM [facility] AND PROVIDED HER WITH THE ABOVE INFORMATION. SHE ALSO STATED THAT A NURSE WILL COME TO PT'S HOME TOMORROW FOR THE START OF CARE.
[2016-11-17 16:00] VITALS: BP 144/76
--- NOTE | 2016-11-17 17:45 | NUR ---
SPOKE TO PT AND NOTIFIED HIM OF POSSIBLE PICC LINE INSERTION TODAY. STILL WAITING FOR VERIFICATION FROM PICC LINE NURSE. IF NURSE DOES NOT COME IN TODAY, PT WILL HAVE TO STAY ANOTHER NIGHT. WILL WAIT FOR CALL BACK AND NOTIFY PT ONCE HEARD FROM PICC LINE NURSE. PT AWARE.
--- NOTE | 2016-11-17 18:17 | NUR ---
NOTIFIED PICC LINE NURSE WILL COME IN AT 2030 TONIGHT. CARUSO AWARE AND AGREED TO BE D/C AFTER PICC LINE NURSE COMES IN. Addendum: 11/17/16 at 1930 by Nelia Cervantes RN CONSENT IN CHART. TIME OUT SHEET AND
--- NOTE | 2016-11-17 19:25 | NUR ---
ENDORSED PT TO CONSULTING ACTUARY NURSE AT BEDSIDE FOR CONTINUITY OF CARE. PT IN STABLE CONDITION.
--- NOTE | 2016-11-17 19:27 | NUR ---
RECEIVED REPORT FROM DAY RN. PT RESTING IN BED. AAXO4. NO S/S OF ACUTE DISTRESS. PT DENIES PAIN. IV SITE PATENT AND INTACT. TELE BOX IN PLACE. PLAN OF CARE UPDATED WITH PATIENT. PT VERBALIZED UNDERSTANDING. CALL LIGHT WITHIN REACH. SAFETY MEASURES ENSURED. WILL CONTINUE TO MONITOR.
[2016-11-17 20:00] VITALS: BP 166/84
--- NOTE | 2016-11-17 20:17 | NUR ---
PICC LINE RN HERE. PT VERBALIZED UNDERSTANDING. TIME OUT PERFORMED. WILL CONTINUE TO MONITOR.
--- NOTE | 2016-11-17 20:49 | NUR ---
PICC LINE INSERTION COMPLETED. NO S/S OF ACUTE DISTRESS. PT DENIES PAIN. WILL CONTINUE TO MONITOR.
--- NOTE | 2016-11-17 21:00 | NUR ---
PT CLEARED FOR DISCHARGE. DISCHARGE INSTRUCTIONS PROVIDED. PT VERBALIZED UNDERSTANDING. IV TAKEN OUT TIP INTACT. WILL CONTINUE TO MONITOR.
== END 2016-11-17 21:05 | disposition home health service (06) | DRG 720 ==
LOC: MED 14:49 → MIC 20:01 → MTU 11-15 05:48
PROVIDERS: ADMIT Internal Medicine; ATTEND Internal Medicine
PROC: 5A09357 Assistance with Respiratory Ventilation, Less than 24 Consecutive Hours, Continuous Positive Airway Pressure (ICD-10-PCS; principal; 2016-11-13)
PROC: 0BJ17ZZ Inspection of Trachea, Via Natural or Artificial Opening (ICD-10-PCS; 2016-11-13)
PROC: 02HV33Z Insertion of Infusion Device into Superior Vena Cava, Percutaneous Approach (ICD-10-PCS; 2016-11-17)
PROC: B548ZZA Ultrasonography of Superior Vena Cava, Guidance (ICD-10-PCS; 2016-11-17)
DX: A41.9 Sepsis, unspecified organism (principal); E87.1 Hypo-osmolality and hyponatremia; J05.10 Acute epiglottitis without obstruction; Z68.42 Body mass index [BMI] 45.0-49.9, adult; E83.42 Hypomagnesemia; R13.10 Dysphagia, unspecified; T81.82XA Emphysema (subcutaneous) resulting from a procedure, initial encounter; E66.01 Morbid (severe) obesity due to excess calories; J40 Bronchitis, not specified as acute or chronic; G89.29 Other chronic pain; M54.9 Dorsalgia, unspecified; D72.829 Elevated white blood cell count, unspecified; L93.0 Discoid lupus erythematosus; F17.210 Nicotine dependence, cigarettes, uncomplicated; H57.8 Other specified disorders of eye and adnexa; Z85.47 Personal history of malignant neoplasm of testis; Z90.49 Acquired absence of other specified parts of digestive tract; B95.4 Other streptococcus as the cause of diseases classified elsewhere
CPT/HCPCS: 31500; 36415; 70360; 70490; 71010; 80048; 80053; 80202; 80305; 83735; 84100; 85025; 85610; 85730; 87040; 87081; 92610; 93005; 94640; 94660; 96365; 96375; 96376; 97799; 99291; C1751; J0171; J0295; J0330; J0360; J0696; J1100; J1170; J1200; J2250; J2543; J2930; J3370; J3475; J3490; J7030; J7042; J7060; J7620; Q0092